=== PATIENT | female | born 1980 | race Caucasian/White ===

== ENCOUNTER 2016-11-21 05:56 | Day surgery (SDC) | payer OTHER ==
[~2016-11-21 05:56] MED LIST: Buffered Lidocaine 0.9% SYRIN* 5 ML/SYR SYRINGE INTRADERM ONE
[2016-11-21] MEDS ORDERED: Dexamethasone IV* 4 MG/ML 1 ML (4 MG) IV SLOW PU ONE (06:00)
[2016-11-21] MEDS ORDERED: Famotidine IV* 10 MG/ML 2 ML (20 mg) IV ONE (06:00)
[2016-11-21] MEDS ORDERED: Dexamethasone IV* 4 MG/ML 1 ML (4 MG) ONE (06:03)
[2016-11-21] MEDS ORDERED: Famotidine IV* 10 MG/ML 2 ML (20 mg) ONE (06:03)
[2016-11-21] MEDS ORDERED: Buffered Lidocaine 0.9% SYRIN* 5 ML/SYR SYRINGE ONE (06:04)
[2016-11-21] MEDS ORDERED: Bupivacaine 0.25% SDV* 30 ML ONE (07:07)
[2016-11-21] MEDS ORDERED: Ketorolac INJ* 30 MG/ML 1 ML VIAL ONE (07:22)
[2016-11-21] MEDS ORDERED: Propofol* 10 MG/ML 20 ML BTL IV PUSH ONE (07:22)
[2016-11-21] MEDS ORDERED: Ondansetron INJ* 2 MG/ML VIAL ONE ×2 (07:22→09:16)
[2016-11-21] MEDS ORDERED: Lidocaine 2% PF * 5 ML VIAL ONE (07:22)
[2016-11-21] MEDS ORDERED: Atracurium* 10 MG/ML 10 ML VIAL ONE (07:22)
[2016-11-21] MEDS ORDERED: fentaNYL* 50 MCG/ML 5 ML VIAL (250 MCG VIAL) ONE (07:22)
[2016-11-21] MEDS ORDERED: Midazolam* 1 MG/ML 5 ML VIAL (5 MG) ONE (07:22)
[2016-11-21] MEDS ORDERED: HYDROmorphone* 1 MG/ML 1 ML SYR IV PRN (07:35)
[2016-11-21] MEDS ORDERED: oxyCODONE/Acetamin 5/325 MG* TAB PO PRN (07:35)
[2016-11-21] MEDS ORDERED: fentaNYL* 50 MCG/ML 2 ML VIAL (100 MCG VIAL) IV PRN (07:35)
[2016-11-21] MEDS ORDERED: DiMENhydriNATE IV* 50 MG/ML VIAL IV PUSH PRN (07:35)
[2016-11-21] MEDS ORDERED: Scopolamine 1.5 mg* PATCH TRANSDERM PRN (07:35)
[2016-11-21] MEDS ORDERED: Ondansetron INJ* 2 MG/ML VIAL IV PRN (07:35)
[2016-11-21] MEDS ORDERED: Glycopyrrolate IV* 0.2 MG/ML 1 ML VIAL ONE (08:13)
[2016-11-21] MEDS ORDERED: fentaNYL* 50 MCG/ML 2 ML VIAL (100 MCG VIAL) ONE (08:22)
[2016-11-21] MEDS ORDERED: Silver Nitrate/Potassium Nitr* 1 EA STICK ONE (08:39)
[2016-11-21 10:01] VITALS: BP 112/66
--- NOTE | 2016-11-22 07:44 | OP ---
DATE OF OPERATION: 11/21/16 [facility] DATE OF : 80 SURGEON: Dash Latif MD ANESTHESIOLOGIST: Dr. Nicholas Rhodes. ANESTHESIA: General endotracheal. PRE-OP DIAGNOSIS: Satisfied parity. POST-OP DIAGNOSIS: Satisfied parity. OPERATIVE PROCEDURE: Laparoscopic bilateral tubal ligation and IUD removal. ESTIMATED BLOOD LOSS: 30 cc. URINE OUTPUT: 250 cc. IV FLUIDS: 1800 cc lactated Ringer's. MATERIALS TO LAB: None. INDICATIONS: This patient is a 35-year-old 4, para 4, who presented to the office requesting permanent sterilization. The patient already had a Mirena IUD in place, but desired to have it removed and to have permanent sterilization. She was extensively counseled regarding the procedure and consent was signed. FINDINGS: Normal-appearing uterus, fallopian tubes, and ovaries. Intact Mirena IUD was removed from the uterus. COMPLICATIONS: None. DESCRIPTION OF PROCEDURE: The risks, benefits, and alternatives were described to the patient and informed consent was obtained. The patient was taken to the operating room with IV running where general anesthesia was induced and found to be adequate. The patient was prepped and draped in the normal sterile fashion in the low lithotomy position in [facility]. A time-out was performed. A Myers catheter was placed. A bivalve speculum was placed in the vagina and the cervix was easily visualized. IUD strings were grasped with a ring forceps and an intact Mirena IUD was removed without difficulty. Hulka tenaculum was then placed on the cervix and the speculum was then removed. Attention was then turned to the abdomen and gloves were changed. 0.25% Marcaine was then injected into the umbilicus. A 5 mm skin incision was made in the umbilicus with a scalpel. Penetrating towel clamps were placed on the skin on either side of the umbilicus to elevate the skin. A 5 mm bladeless trocar was then inserted through the incision and into the peritoneal cavity without difficulty. Opening pressure was 5 mmHg. The abdomen was then insufflated with carbon dioxide gas to a maximum pressure of 15 mmHg. The towel clamps were removed and one site appeared to have hit a superficial blood vessel in the skin. Pressure was held at this site and there was then good hemostasis. The patient was placed in the Trendelenburg position. The area below the trocar insertion site was inspected and there was no visible evidence of trauma or bleeding. 0.25% Marcaine was then injected about 2 cm above the pubic symphysis in the midline. A transverse incision was made using the scalpel and another bladeless trocar was placed into the peritoneal cavity without difficulty. A blunt grasper was then used to sweep the bowel out of the pelvis and the uterus was lifted using the manipulator. The uterus, both fallopian tubes, and both ovaries appeared completely normal. There was no visible evidence of any disease within the pelvis. The Kleppinger was then used to grasp and coagulate the right fallopian tube at several sites, a total of about 5 cm in length, ensuring that the resistance was completely gone using the meter. This was then repeated on the patient's left side again with excellent results. After photographs were taken, the gas was then allowed to escape from the abdomen. She was placed in a flat position and the trocars were removed. The supra-pubic incision was reapproximated using 4-0 Monocryl in a subcuticular stitch and then DermaFlex skin adhesive was used on both incisions. The Hulka tenaculum was then removed from the cervix. There was some bleeding from the tenaculum site, so pressure was held and then silver nitrate was applied with good hemostasis. The patient was then returned to the supine position and allowed to awaken. The patient tolerated the procedure well. Sponge, lap, and needle counts were correct x2. [id number] #: [id number] MTDD
[2016-11-24] MEDS ORDERED: Scopolomine PATCH Remove* 1 NOTE MISC PATCH OFF ONE (07:36)
== END 2016-11-21 10:38 | disposition home or self-care (01) ==
LOC: OR 05:56
PROVIDERS: ATTEND Obstetrics & Gynecology
DX: Z30.2 Encounter for sterilization (principal); F17.210 Nicotine dependence, cigarettes, uncomplicated
CPT/HCPCS: 81025; A9270-GY; J1100; J1885; J2250; J2405; J2704; J3010

== ENCOUNTER 2017-09-10 08:22 | Emergency (ER) | payer OTHER ==
[2017-09-10 08:41] VITALS: BP 125/83
--- NOTE | 2017-09-10 09:02 | UC ---
Kell Quinonez Elizabeth, scribed for Marija Marion MD on 09/10/17 at 0857 . Hand/Wrist HPI - HPI Summary HPI Summary: This patient is a 36 year old F presenting to [facility] with a chief complaint of right pointer finger pain since 3 days ago. The patient rates the pain 2/10 in severity. Symptoms aggravated by nothing. Symptoms alleviated by nothing. Patient reports manicure 3 weeks ago. Patient denies biting her nails or . No pain along remained or finger. No other complaints. The patient reports that she tried soaking her finger in both peroxide and warm water but it did not alleviate her pain. No immunocompromised Pt's medications reviewed this visit - History Of Current Complaint Chief Complaint: UCUpperExtremity Stated Complaint: SWOLLEN FINGER Time Seen by Provider: 09/10/17 08:37 Hx Obtained From: Patient Hx Last Menstrual Period: a month ago ?: No Onset/Duration: Gradual Onset, Lasting Days - 3 days, Still Present Severity Initially: Mild Severity Currently: Mild Pain Intensity: 2 Pain Scale Used: 0-10 Numeric Aggravating Factor(s): Other - NOTHING Alleviating Factor(s): Nothing Associated Signs And Symptoms: Positive: Swelling - right pointer finger, Fever - Allergies/Home Medications Allergies/Adverse Reactions: Allergies Allergy/AdvReac Type Severity Reaction Status Date / Time Sulfa (Sulfonamide Allergy Hives Verified 09/10/17 08:34 Antibiotics) PMH/Surg Hx/FS Hx/Imm Hx Previously Healthy: Yes - Surgical History Surgical History: Yes Surgery Procedure, Year, and Place: BILAT BREAST REDUCTION [facility] [place] 2009. tubal - Family History Known Family History: Positive: None - Patient denies relevant FHx - Social History Occupation: Employed Part-time Lives: With Family Alcohol Use: None Substance Use Type: None Smoking Status (MU): Current Every Day Smoker Type: eCigarettes Amount Used/How Often: USES E GIGARETTES Have You Smoked in the Last Year: No When Did the Patient Quit Smoking/Using Tobacco: 2014 Review of Systems Constitutional: Fever Skin: Negative - NEGATIVE RASH ENT: Negative - NEGATIVE EPISTAXIS Musculoskeletal: Edema - Swelling in right pointer finger All Other Systems Reviewed And Are Negative: Yes Physical Exam - Summary Physical Exam Summary: Vital Signs Reviewed: Yes A+Ox3, no distress Eyes: Conjunctiva Clear ENT: Hearing grossly normal neck: supple Respiratory: Positive: No respiratory distress, No accessory muscle use Cardiovascular: skin color reflect adequate perfusion Musculoskeletal Exam: OLMEDO x 4 without difficulty + flex/ext MCP, PIP, DIP Neurological: Positive: Alert, ambulatory without difficulty Psychological: Positive: Normal Response To Family Skin: Positive: no rash, no ecchymosis Pt with early paronycia right index finger lateral aspect warm, discomfort no flcutance, no visible purulent material cuticle soft Triage Information Reviewed: Yes Vital Signs: Initial Vital Signs Temp 99.5 F 09/10/17 08:35 Pulse 85 09/10/17 08:35 Resp 16 09/10/17 08:35 BP 125/83 09/10/17 08:35 Pulse Ox 100 09/10/17 08:35 Hand/Wrist Course/Dx - Course Course Of Treatment: pt with early paroyncyhia right index finger. no flcutance of indication for I+D. warm epsom salt soaks. abx. motrin/apap. elevate. return precuations. pt comfortable and in agreement with plan - Differential Dx/Diagnosis Provider Diagnoses: paronychia Discharge - Sign-Out/Discharge Documenting (check all that apply): Discharge/Admit/Transfer - Discharge Plan Condition: Stable Disposition: HOME Prescriptions: DOXYcycline CAP(*) [DOXYcycline 100MG CAP(*)] 100 mg PO BID #14 cap Fluconazole 150 MG (NF) [Diflucan 150 mg (NF)] 150 mg PO ONCE #1 tab Patient Education Materials: Paronychia (ED) Referrals: Maria Isabel Rascon MD [Primary Care Provider] - Additional Instructions: - wear splint for comfort and support - soak in epsom salt soaks for 15 minutes, 2-3 times a day - take antibiotics as prescribed until gone - alternate ibuprofen (advil, motrin) and Tylenol every 3 hours for pain or fever - elevate your hand to help with swelling and pain - you have been prescribed the one time treatment for a vaginal yeast infection - okay to use it at the end of your antibiotics if you develop an infection - contact your doctor to schedule a follow-up appointment. Contact your doctor or return with questions or concerns - Billing Disposition and Condition Condition: STABLE Disposition: HOME The documentation as recorded by the Kell rubi Elizabeth accurately reflects the service I personally performed and the decisions made by me, Marija Marion MD.
== END 2017-09-10 09:11 | disposition home or self-care (01) ==
LOC: UCEAST 08:22
DX: L03.011 Cellulitis of right finger (principal); Z98.890 Other specified postprocedural states; Z88.2 Allergy status to sulfonamides; F17.290 Nicotine dependence, other tobacco product, uncomplicated
CPT/HCPCS: 99213; G0463